=== PATIENT | female | born 1985 | race African-American/Black ===

== ENCOUNTER 2016-05-28 22:19 | Emergency (ER) | payer MEDICARE, OTHER | END 2016-05-28 22:51 | disposition home or self-care (01) | LOC: CFTX 22:19 | DX: J02.0 Streptococcal pharyngitis (principal); F17.210 Nicotine dependence, cigarettes, uncomplicated; Z85.850 Personal history of malignant neoplasm of thyroid | CPT/HCPCS: 87880; 99283 ==